=== PATIENT | female | born 1980 | race Caucasian/White ===

== ENCOUNTER 2019-06-11 22:31 | Emergency (ER) | payer BC ==
[~2019-06-11] VITALS: Ht 165.1 cm; Wt 83.9 kg
[2019-06-11 22:38] VITALS: BP 133/79
--- NOTE | 2019-06-11 22:41 | NUR ---
DILMA SANON. OKAY TO WAIT IN LOBBY FOR MAIN ED BED. VSS.
--- NOTE | 2019-06-12 01:20 | NUR ---
TO BED # 11 VIA WHEELCHAIR
--- NOTE | 2019-06-12 01:21 | NUR ---
39 YO FEMALE BIB SELF FOR C/O L ANKLE PAIN. PT STATES PAIN IS INTERMITTENT X 3 MONTHS. ACHINESS. PT STATES UNABLE TO BEAR WEIGHT MORE THAN X1 HOUR @ THIS TIME. DISTAL PULSES INTACT. SKIN WARM DRY INTACT. PT STATES L ANKLE EDEMATOUS, PT AAOX4 SITTING UP IN GURNEY. FRIEND @ BEDSIDE. GURNEY LOCKED IN LOWEST POSITION. WILL CONTINUE TO OBSERVE. PMH: GALLBLADDER TAKEN OUT IN PAST AX: CIPRO, CONTRAST DYE, SHRIMP MED: DENIES
[2019-06-12] MEDS ORDERED: KETOROLAC 60 MG/2 ML VIAL IM ONE (02:00)
[2019-06-12 02:18] VITALS: BP 133/79
--- NOTE | 2019-06-12 02:19 | NUR ---
Note arina in EDM - 06/12/19 at 0223 by BOBBY Patient discharged with v/s stable. Written and verbal after care instructions given and explained. Patient alert, oriented and verbalized understanding of instructions. Ambulatory with steady gait. All questions addressed prior to discharge. ID band removed. Patient advised to follow up with PMD. Rx of PREDNISONE given. Patient educated on indication of medication including possible reaction and side effects. Opportunity to ask questions provided and answered.
--- NOTE | 2019-06-12 02:53 | NUR ---
Patient discharged with v/s stable. Written and verbal after care instructions given and explained. Patient alert, oriented and verbalized understanding of instructions. Ambulatory with steady gait. All questions addressed prior to discharge. ID band removed. Patient advised to follow up with PMD. Rx of NORCO, MOTRIN given. Patient educated on indication of medication including possible reaction and side effects. Opportunity to ask questions provided and answered.
== END 2019-06-12 02:18 | disposition home or self-care (01) ==
LOC: MED 22:31
DX: M25.572 Pain in left ankle and joints of left foot (principal); Z90.49 Acquired absence of other specified parts of digestive tract; Z91.041 Radiographic dye allergy status; Z88.1 Allergy status to other antibiotic agents
CPT/HCPCS: 73610; 96372; 99283; J1885